=== PATIENT | female | born 1965 | race Caucasian/White ===

== ENCOUNTER → 2016-03-21 | Outpatient (CLI) | payer OTHER ==
--- NOTE | 2016-03-21 09:33 | MAM ---
EXAM DESCRIPTION: MAMMO BREAST DIAGNOSTIC UNILATERAL Images were reviewed with R2 computer-aided detection. CLINICAL HISTORY: Focal asymmetry right breast 10 o'clock. COMPARISON: Baseline study 12/06/2015 FINDINGS: True lateral view was spot compression films do not demonstrated persistent focal asymmetry period underlying glandular tissue maintains normal architecture. Benign calcification is shown. No dominant mass. IMPRESSION: Benign exam. Mammographic asymmetry corresponded to overlapping normal glandular tissue. BIRAD CATEGORY: 2 BENIGN RECOMMENDATION: FOLLOW-UP: Routine annual mammography. Findings and recommendations communicated to the patient by the technologist. According to the [employer], yearly mammograms are recommended starting at age 40 and continuing as long as a woman is in good health. Any breast change noted on a breast self-exam should be reported promptly to the patient's healthcare provider. Breast MRI is recommended for women with an approximately 20-25% or greater lifetime risk of breast cancer, including women with a strong family history of breast or ovarian cancer and women who have been treated for Hodgkin's disease. Electronically signed by: Leelee Gonzales 03/21/2016 09:30
== END | disposition home or self-care (01) ==
LOC: MAMMO 08:14
PROVIDERS: ATTEND Family Medicine
DX: R92.8 Other abnormal and inconclusive findings on diagnostic imaging of breast (principal)
CPT/HCPCS: 77065; G0206

== ENCOUNTER → 2017-04-07 | Outpatient (CLI) | payer OTHER ==
--- NOTE | 2017-04-09 08:51 | MAM ---
EXAM DESCRIPTION: 3D Screening BILATERAL : Digital Mammography. CLINICAL HISTORY: 52 years Female SCREENING . No complaints. No family history of breast cancer. Postmenopausal. Taking HRT 5 or more years ago. COMPARISON: Digital right diagnostic mammography 03/21/2016 and bilateral screening digital mammography 12/06/2015. Reports from prior examinations also reviewed. TECHNIQUE: Bilateral CC and MLO projection full-field images, 3-D tomosynthesis digital mammographic technique. Also bilateral synthesized CC/ MLO full-field images. CAD not utilized. FINDINGS: The breast parenchymal density pattern is: Scattered areas of fibroglandular density. No skin thickening or nipple retraction Bilateral axillary lymph nodes. Bilateral solitary microcalcifications. Stable focal asymmetry upper outer quadrant anterior right breast. Stable focal asymmetry retroareolar left breast. No focal, stellate mass or density, focal asymmetry , and no suspicious microcalcifications bilaterally. Stable mammograms compared to prior screening study in 2016, taking into account differences in mammographic technique IMPRESSION: BI-RADS CATEGORY: 2 - BENIGN FINDINGS. FOLLOW UP: Routine digital bilateral screening, one year interval from March 2017. Written communication explaining the IMPRESSION and follow-up, will be mailed to the patient and referring health care provider. According to the [employer], yearly mammograms are recommended starting at age 40 and continuing as long as a woman is in good health. Any breast change noted on a breast self-exam should be reported promptly to the patient's healthcare provider. Breast MRI is recommended for women with an approximately 20-25% or greater lifetime risk of breast cancer, including women with a strong family history of breast or ovarian cancer and women who have been treated for Hodgkin's disease. A negative mammographic report should not delay tissue diagnosis in patients with significant clinical history or physical findings. Extremely dense breast tissue limits the sensitivity of digital mammography. Electronically signed by: David Barlow MD 04/09/2017 8:50 AM FISH CHECKER
== END ==
LOC: MAMMO 13:00
PROVIDERS: ATTEND Family Medicine
DX: Z12.31 Encounter for screening mammogram for malignant neoplasm of breast (principal)

== ENCOUNTER → 2018-04-15 | Outpatient (CLI) | payer OTHER | LOC: GMAE 10:42 | PROVIDERS: ATTEND Family Medicine | DX: Z00.01 Encounter for general adult medical examination with abnormal findings (principal) ==

== ENCOUNTER 2019-02-16 11:02 | Emergency (ER) | payer OTHER ==
[2019-02-16] MEDS ORDERED: ACETAMINOPHEN 500 MG TAB PO ONE (11:18)
[2019-02-16] MEDS ORDERED: PROMETHAZINE HCL INJ 12.5 MG in SODIUM CHLORIDE 0.9% 50ML 50 ML IVPB ONE (11:19)
[2019-02-16] MEDS ORDERED: SODIUM CHLORIDE 0.9% 1000ML 1,000 ML IVS ONE (11:20)
--- NOTE | 2019-02-16 11:24 | ED.PDOC ---
History of Present Illness - General Time Seen by Provider: 02/16/19 11:17 Source: patient, other - friend Exam Limitations: no limitations - History of Present Illness Initial Comments: 53 F +pmh presents with friend to ED from clinic c/o severe left sided headache with posterior occiput and neck pain. Pt also c/o associated difficulty dysarthria, difficulty focusing, slurred words reported by friend, nausea without emesis. Pt informs that sx's began with headache yesterday and progressed throughout the evening. 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 No h/o similar sx's. She denies associated dizziness, focal weakness, CP, SOB, n/v/d, f/c. She denies any other complaints at this time. PMH: depression, anxiety; denies HTN, DM, HLD PSHx: noncontributory. Allergies/Adverse Reactions: Allergies Clarithromycin [From Biaxin] Allergy (Verified 02/16/19 11:29) Penicillins Allergy (Verified 02/16/19 11:29) Sulfa Antibiotics Allergy (Verified 02/16/19 11:29) Review of Systems - Review of Systems Constitutional: Denies: chills, fever, weakness EENTM: States: blurred vision. Denies: double vision, throat pain Respiratory: Denies: cough, short of breath Cardiology: Denies: chest pain Gastrointestinal/Abdominal: States: nausea. Denies: abdominal pain, diarrhea, vomiting Genitourinary: Denies: dysuria, frequency Musculoskeletal: States: neck pain. Denies: back pain, joint pain, muscle pain Skin: Denies: rash Neurological: States: anxiety, headache, tremors - chronic in RUE and unchanged, other - difficulty focusing, dysarthria. Denies: numbness, paresthesia, weakness Endocrine: Denies: excessive sweating Family Medical History - Family History Mother Family History: Unknown Living Status: Unknown Physical Exam - Physical Exam General Appearance: Alert, Anxious, Comfortable, Obvious distress, Well Developed, Well Groomed, Well Hydrated, Well Nourished Eyes, Ears, Nose, Throat Exam: PERRL/EOMI, normal ENT inspection Neck: non-tender, full range of motion, supple, normal inspection, other - no midline or paraspinal musculature TTP, no ridgidity, no meningeal signs Cardiovascular/Chest: normal peripheral pulses, regular rate, rhythm, no edema, no JVD, no murmur Respiratory: lungs clear, normal breath sounds, no respiratory distress, no accessory muscle use Gastrointestinal/Abdominal: normal bowel sounds, non tender, soft Extremity: normal inspection, no pedal edema 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 No TPA as sx onset >4.5hr period. I will evaluate labs, EKG, imaging with angiography, provide appropriate pharmacotherapy as indicated, and continue to monitor/reassess. Disposition will depend on labs, EKG, imaging, and pt's overall ED course. 13:07 Decision for transfer/admission due to 2.5cm SAH. Rechecked pt with friend at bedside. I have discussed findings and need for transfer admission. Pt agrees with plan for transfer and prefers [facility]. 13:41 I have consulted with ED physician at transferring facility and discussed pt's case in ED along with current findings. He agrees with plan for transfer by [facility]. - Results/Orders Results/Orders: EKG @1158: ED physican read @1200: NSR @ 83, nl axis, intervals wnl, no ST elevations/depressions. No STEMI. No prior EKG's for comparison. Laboratory Tests 02/16/19 02/16/19 11:54 11:54 WBC 11.1 H RBC 4.98 Hgb 14.9 Hct 43.4 MCV 87.2 MCH 30.0 MCHC 34.4 RDW 13.2 Plt Count 270 MPV 7.9 Absolute Neuts (auto) 7.90 H Absolute Lymphs (auto) 2.00 Absolute Monos (auto) 0.90 H Absolute Eos (auto) 0.10 Absolute Basos (auto) 0.10 Neutrophils % 71.4 Lymphocytes % 18.2 L Monocytes % 8.3 Eosinophils % 1.3 Basophils % 0.8 Sodium 131 L Potassium 3.8 Chloride 95 L Carbon Dioxide 26 Anion Gap 13.8 BUN 14 Creatinine 0.77 BUN/Creatinine Ratio 18.2 Random Glucose 98 Serum Osmolality 263.1 L Calcium 9.1 Total Bilirubin 0.6 AST 21 ALT 21 Alkaline Phosphatase 79 Serum Total Protein 7.3 Albumin 3.7 Globulin 3.6 H Albumin/Globulin Ratio 1.0 L EXAM DESCRIPTION: Head CLINICAL HISTORY: CVA r/o COMPARISON: None available TECHNIQUE: Contiguous axial images through the head were obtained without intravenous contrast administration. Sagittal and coronal reconstructions were reviewed. FINDINGS: 2.5 cm hemorrhage is identified in the posterior left parie jennifer occipital lobe. Subarachnoid hemorrhage is identified in the posterior left parieto-occipital lobes as well. No intra-axial or extra-axial fluid collections are identified. The ventricles and cisterns appear normal in caliber. The sella and suprasellar regions appear normal. The structures of the posterior fossa are intact. The globes are intact bilaterally. The visualized paranasal sinuses and mastoid air cells are well-aerated. Review of the bones demonstrates no gross instability. IMPRESSION: 2.5 cm hemorrhage is identified in the posterior left parietal occipital lobe. Subarachnoid hemorrhage is identified in the posterior left parieto-occipital lobes as well. Findings could represent hypertensive hemorrhage versus underlying lesion. This exam was performed according to our departmental dose-optimization program, which includes automated exposure control, adjustment of the mA and/or kV according to patient size and/or use of iterative reconstruction technique. Electronically signed by: Pam Pandya MD 02/16/2019 11:53 AM CORPORATE TRAVEL AGENT EXAM DESCRIPTION: CTA Head (accession [id number]), CTA Neck (accession [id number]) CLINICAL HISTORY: 53 years Female, CVA r/o COMPARISON: CT head performed on the same day. TECHNIQUE: CT angiogram of the head and neck was performed after intravenous contrast administration arterial phase. Sagittal, coronal and 3-D reconstructions were reviewed. FINDINGS: Angiographic evaluation: Normal three-vessel aortic arch is noted. Bilateral common and internal carotid arteries demonstrate good contrast opacification with no significant stenosis or occlusion. The bilateral middle cerebral and anterior cerebral arteries appear normal. The right vertebral artery is dominant. However both vertebral arteries demonstrate good contrast opacification with no significant stenosis or occlusion. The basilar artery and bilateral posterior cerebral arteries appear normal as well. The soft tissues of the neck appear no rmal. The thyroid gland also appears normal. Few subcentimeter lymph nodes are identified which are nonspecific in etiology. IMPRESSION: Normal CT angiogram of the head and neck. Electronically signed by: Pam Pandya MD 02/16/2019 12:07 PM CORPORATE TRAVEL AGENT Departure - Departure Clinical Impression: Subarachnoid hemorrhage Time of Disposition: 12:07 Disposition: Transfer to Hospital Condition: Good Departure Forms: Patient Portal Self Enrollment, ED Discharge - Pt. Copy Referrals: Farhana Pryor NP [Primary Care Provider] - 1-2 Weeks Critical Care Note - Critical Care Note Total Time (mins): 49 Comments: Performed separate of education time. Performed by me as initial treating/diagnosing physician without receiving hand- off. Concern for Neurologic decompensation due to possible CVA with later diagnosed SAH. Evaluated pt, labs, imaging, ekg, performed chart review, talked with consult ants, and managed pt's care of plan. Decision To Admit - Decistion To Admit Decision to Admit Date: 02/16/19 Decision to Admit Time: 12:07
[2019-02-16] MEDS ORDERED: PROMETHAZINE HCL INJ 25 MG/ML VIAL ONE (11:32)
[2019-02-16] MEDS ORDERED: SODIUM CHLORIDE 0.9% 50ML 50 ML ONE (11:33)
--- NOTE | 2019-02-16 11:55 | CT ---
EXAM DESCRIPTION: Head CLINICAL HISTORY: CVA r/o COMPARISON: None available TECHNIQUE: Contiguous axial images through the head were obtained without intravenous contrast administration. Sagittal and coronal reconstructions were reviewed. FINDINGS: 2.5 cm hemorrhage is identified in the posterior left parietal occipital lobe. Subarachnoid hemorrhage is identified in the posterior left parieto-occipital lobes as well. No intra-axial or extra-axial fluid collections are identified. The ventricles and cisterns appear normal in caliber. The sella and suprasellar regions appear normal. The structures of the posterior fossa are intact. The globes are intact bilaterally. The visualized paranasal sinuses and mastoid air cells are well-aerated. Review of the bones demonstrates no gross instability. IMPRESSION: 2.5 cm hemorrhage is identified in the posterior left parietal occipital lobe. Subarachnoid hemorrhage is identified in the posterior left parieto-occipital lobes as well. Findings could represent hypertensive hemorrhage versus underlying lesion. This exam was performed according to our departmental dose-optimization program, which includes automated exposure control, adjustment of the mA and/or kV according to patient size and/or use of iterative reconstruction technique. Electronically signed by: Pam Pandya MD 02/16/2019 11:53 AM [facility]
[2019-02-16] MEDS ORDERED: LABETALOL INJ 5 MG/ML VIAL IV ONE (12:08)
--- NOTE | 2019-02-16 12:08 | CT ---
EXAM DESCRIPTION: CTA Head (accession [id number]), CTA Neck (accession [id number]) CLINICAL HISTORY: 53 years Female, CVA r/o COMPARISON: CT head performed on the same day. TECHNIQUE: CT angiogram of the head and neck was performed after intravenous contrast administration arterial phase. Sagittal, coronal and 3-D reconstructions were reviewed. FINDINGS: Angiographic evaluation: Normal three-vessel aortic arch is noted. Bilateral common and internal carotid arteries demonstrate good contrast opacification with no significant stenosis or occlusion. The bilateral middle cerebral and anterior cerebral arteries appear normal. The right vertebral artery is dominant. However both vertebral arteries demonstrate good contrast opacification with no significant stenosis or occlusion. The basilar artery and bilateral posterior cerebral arteries appear normal as well. The soft tissues of the neck appear normal. The thyroid gland also appears normal. Few subcentimeter lymph nodes are identified which are nonspecific in etiology. IMPRESSION: Normal CT angiogram of the head and neck. Electronically signed by: Pam Pandya MD 02/16/2019 12:07 PM ELECTRIC MOTOR MECHANIC
--- NOTE | 2019-02-16 12:09 | CT ---
EXAM DESCRIPTION: CTA Head (accession [id number]), CTA Neck (accession [id number]) CLINICAL HISTORY: 53 years Female, CVA r/o COMPARISON: CT head performed on the same day. TECHNIQUE: CT angiogram of the head and neck was performed after intravenous contrast administration arterial phase. Sagittal, coronal and 3-D reconstructions were reviewed. FINDINGS: Angiographic evaluation: Normal three-vessel aortic arch is noted. Bilateral common and internal carotid arteries demonstrate good contrast opacification with no significant stenosis or occlusion. The bilateral middle cerebral and anterior cerebral arteries appear normal. The right vertebral artery is dominant. However both vertebral arteries demonstrate good contrast opacification with no significant stenosis or occlusion. The basilar artery and bilateral posterior cerebral arteries appear normal as well. The soft tissues of the neck appear normal. The thyroid gland also appears normal. Few subcentimeter lymph nodes are identified which are nonspecific in etiology. IMPRESSION: Normal CT angiogram of the head and neck. Electronically signed by: Pam Pandya MD 02/16/2019 12:07 PM DRUM CLEANER
[2019-02-16] MEDS ORDERED: HYDROmorphone HCL INJ 2 MG/ML VIAL IV ONE (12:23)
[2019-02-16 13:07] VITALS: BP 159/99; TEMP 98; O2SAT 97
== END 2019-02-16 13:09 | disposition short-term general hospital (02) ==
LOC: ER 11:02
DX: I60.8 Other nontraumatic subarachnoid hemorrhage (principal); I69.022 Dysarthria following nontraumatic subarachnoid hemorrhage; I69.028 Other speech and language deficits following nontraumatic subarachnoid hemorrhage; R11.0 Nausea; M54.2 Cervicalgia; Z88.8 Allergy status to other drugs, medicaments and biological substances; Z88.0 Allergy status to penicillin; Z88.2 Allergy status to sulfonamides
CPT/HCPCS: 36415; 70450; 70496; 70498; 80053; 85025; A4216; J1170; J2550; J7030

== ENCOUNTER → 2020-01-03 | Outpatient (CLI) | payer OTHER ==
--- NOTE | 2020-01-04 14:52 | RAD ---
EXAM DESCRIPTION: Lumbar Spine 3 Views CLINICAL HISTORY: SCIATICA COMPARISON: None Available. TECHNIQUE: X-ray three-view lumbar FINDINGS: There is good alignment of the lumbar spine. There is no fracture or bone lesion. Significant disc space narrowing L4-5 and L5-S1 with vacuum disc phenomenon L4-5 with small anterior marginal osteophytes L4-5 IMPRESSION: Degenerative lumbar disc disease severe at L4-5 Electronically signed by: Herrera Emery MD 01/04/2020 2:51 PM [facility]
== END ==
LOC: RAD 17:21
PROVIDERS: ATTEND Nurse Practitioner Family
DX: M54.32 Sciatica, left side (principal); M51.36 Other intervertebral disc degeneration, lumbar region